=== PATIENT | female | born 1985 | race Caucasian/White ===

== ENCOUNTER 2017-04-19 14:30 | Emergency (ER) | payer BC ==
[~2017-04-19 14:30] MED LIST: SYNT88TA; Z.0.BCPILL
[2017-04-19 14:32] VITALS: BP 129/75; PULSE 86; RESP 18; TEMP 97.7; O2SAT 99
[2017-04-19] MEDS ORDERED: SODIUM CHLORIDE 0.9% FLUSH 10 ML FLUSH IV FLUSH PRN (15:15)
[2017-04-19] MEDS ORDERED: ONDANSETRON ODT 4 MG TAB PO ONE (15:15)
[2017-04-19] MEDS ORDERED: ALUMINUM/MAGNESIUM/SIMETH 30 ML CUP PO ONE (15:30)
[2017-04-19 15:53] VITALS: O2SAT 100
[2017-04-19 15:53] LABS: AUTOMATED NEUTROPHIL # 6.9 TH/MM3 (1.8-7.7); BASOPHIL % 0.2 % (0.0-2.0); EOSINOPHIL % 0.2 % (0.0-4.0); HEMATOCRIT 41.5 % (35.0-46.0); HEMO FLAGS DIFF FINAL; LYMPH % 13.6 % (9.0-44.0); LYMPHOCYTE # 1.2 TH/MM3 (1.0-4.8); MEAN CELL VOLUME 89.8 FL (80.0-100.0); MEAN CORPUSCULAR HEMOGLOBIN 30.6 PG (27.0-34.0); MEAN CORPUSCULAR HGB CONC 34.1 % (32.0-36.0); MONO % 5.8 % (0.0-8.0); NEUT % 80.2 % (16.0-70.0); PLATELET COUNT 234 TH/MM3 (150-450); RED BLOOD COUNT 4.62 MIL/MM3 (4.00-5.30); RED CELL DISTRIBUTION WIDTH 13.8 % (11.6-17.2); WHITE BLOOD COUNT 8.6 TH/MM3 (4.0-11.0)
[2017-04-19 16:09] LABS: ALT (GPT) 27 U/L (10-53); ANION GAP 10 MEQ/L (5-15); AST (GOT) 11 U/L (15-37); BLOOD UREA NITROGEN 5 MG/DL (7-18); CHLORIDE 102 MEQ/L (98-107); GLOMERULAR FILTRATION RATE 125 ML/MIN (>89); POTASSIUM 3.3 MEQ/L (3.5-5.1); SODIUM (NA) 135 MEQ/L (136-145)
[2017-04-19 16:11] LABS: ALKALINE PHOSPHATASE 46 U/L (45-117); TOTAL BILIRUBIN ADULT 0.7 MG/DL (0.2-1.0)
[2017-04-19 16:20] LABS: BACTERIA, URINE RARE /hpf; BLOOD, URINE NEG (NEG); COMMENT (UR) CULT NOT INDICATED; CULTURE IF INDICATED CULT NOT INDICATED; GLUCOSE,URINE NEG (NEG); KETONE, URINE 80 mg/dL (NEG); NITRITE,URINE NEG (NEG); PH, URINE 7.5 (5.0-8.5); SQUAMOUS EPITHELIAL CELL URINE 1 /hpf (0-5); URINE COLOR LIGHT-YELLOW (YELLW/STRAW)
--- NOTE | 2017-04-19 16:26 | RADRPT ---
EXAM DATE/TIME: 04/19/2017 15:37 [facility] COMPARISON: No previous studies available for comparison. INDICATIONS : Right upper quadrant pain. MEDICAL HISTORY : GERD. Hypothyroidism. Ovarian cysts. . SURGICAL HISTORY : None. ENCOUNTER: Initial ACUITY: 1 day PAIN SCORE: 4/10 LOCATION: Right upper quadrant MEASUREMENTS: LIVER: 12.9 cm length COMMON DUCT: 3 mm RIGHT KIDNEY: 11.5 x 4.2 x 6.1 cm FINDINGS: LIVER: Normal echotexture without focal lesion or ductal dilatation. COMMON DUCT: No intraluminal mass or stone visualized. GALLBLADDER: Contains no stones, demonstrates no wall thickening or pericholecystic fluid. PANCREAS: The visualized portions are within normal limits. RIGHT KIDNEY: No evidence of hydronephrosis, stone, or mass. CONCLUSION: Unremarkable ultrasound examination of the gallbladder. 8 Lorenzo Rosado MD on April 19, 2017 at 16:24 Board Certified Radiologist. This report was verified electronically.
--- NOTE | 2017-04-19 16:29 | RADRPT ---
EXAM DATE/TIME: 04/19/2017 15:43 [facility] COMPARISON: No previous studies available for comparison. INDICATIONS : Pelvic pain. LAB(S): Beta-hCG: N/A MEDICAL HISTORY : . Gastroesophageal reflux disease. Ovarian cysts. SURGICAL HISTORY : None. ENCOUNTER: Initial ACUITY: 1 day PAIN SCORE: 6/10 LOCATION: Bilateral pelvis MEASUREMENTS: UTERUS: 8.8 x 6.4 x 7.6 cm ENDOMETRIAL STRIPE: >20 mm RIGHT OVARY: 3.0 x 1.7 x 2.7 cm LEFT OVARY: 7.8 x 6.1 x 9.2 cm FREE FLUID: No CROWN RUMP LENGTH: 2.1 cm = 8 WKS 5 DAYS FHR: 180 BPM FINDINGS: Ultrasound of the pelvis via transabdominal transvaginal approach demonstrates a single viable intrau terine with a crown-rump length of 2.1 cm Cardiac activity is identified at 180 beats per m inute. Normal Doppler flow is present bilaterally. There is an 8.5 cm left ovarian cyst. Examination of the right ovary demonstrates no abnormality. CONCLUSION: 1. Intrauterine at 8 weeks 5 days 2. No evidence of torsion 3. 8.5 cm left adnexal cyst Lorenzo Rosado MD on April 19, 2017 at 16:26 Board Certified Radiologist. This report was verified electronically.
[2017-04-19] MEDS ORDERED: CHLO5CAP4 PO (17:24)
[2017-04-19] MEDS ORDERED: SUCR1TAB PO (17:24)
[2017-04-19] MEDS ORDERED: ZANT150T2 PO (17:24)
--- NOTE | 2017-04-19 17:30 | PD ---
Physical Exam Date Seen by Provider: Apr 19, 2017 Time Seen by Provider: 17:26 Narrative 31-year-old female that presents to the ED for evaluation of pelvic pain. I was asked by my attending to disposition the patient. Please refer to her note. I spoke with Dr. Maradiaga over the phone in regards to the results of the ultrasounds and labs. She recommends starting patient on half a Librium to have every 6 hours as needed for the pelvic cramping as well as standing the patient Carafate 1 gm every day with meals TID. My attending Dr. Donald wants the patient to also start Zantac which is category B. This was discussed with the patient who is in agreement with plan. Dr. Maradiaga stated that she will call the patient tonight and wants to see her in the office tomorrow. This was told to the patient who agrees with plan. Data Data Last Documented VS Vital Signs Date Time Temp Pulse Resp B/P (MAP) Pulse Ox O2 Delivery O2 Flow Rate FiO2 04/19/17 15:53 100 Room Air 04/19/17 15:04 18 04/19/17 14:32 97.7 86 Orders Orders Complete Blood Count With Diff (04/19/17 15:15) Comprehensive Metabolic Panel (04/19/17 15:15) Lipase (04/19/17 15:15) Urinalysis - C+S If Indicated (04/19/17 15:15) Us Abdomen Gallbladder (04/19/17 ) Iv Access Insert/Monitor (04/19/17 15:15) Ecg Monitoring (04/19/17 15:15) Oximetry (04/19/17 15:15) Sodium Chloride 0.9% Flush (Ns Flush) (04/19/17 15:15) Ondansetron Odt (Zofran Odt) (04/19/17 15:15) Al-Mag Hy-Si 40-40-4 Mg/Ml Liq (Mag-Al P (04/19/17 15:30) Us Pelvis Preg(Sgl/ Gestat) (04/19/17 ) Labs Laboratory Tests Test 04/19/17 15:30 White Blood Count 8.6 TH/MM3 Red Blood Count 4.62 MIL/MM3 Hemoglobin 14.2 GM/DL Hematocrit 41.5 % Mean Corpuscular Volume 89.8 FL Mean Corpuscular Hemoglobin 30.6 PG Mean Corpuscular Hemoglobin Concent 34.1 % Red Cell Distribution Width 13.8 % Platelet Count 234 TH/MM3 Mean Platelet Volume 8.9 FL Neutrophils (%) (Auto) 80.2 % Lymphocytes (%) (Auto) 13.6 % Monocytes (%) (Auto) 5.8 % Eosinophils (%) (Auto) 0.2 % Basophils (%) (Auto) 0.2 % Neutrophils # (Auto) 6.9 TH/MM3 Lymphocytes # (Auto) 1.2 TH/MM3 Monocytes # (Auto) 0.5 TH/MM3 Eosinophils # (Auto) 0.0 TH/MM3 Basophils # (Auto) 0.0 TH/MM3 CBC Comment DIFF FINAL Differential Comment Urine Color LIGHT-YELLOW Urine Turbidity CLEAR Urine pH 7.5 Urine Specific [place] 1.006 Urine Protein NEG mg/dL Urine Glucose (UA) NEG mg/dL Urine Ketones 80 mg/dL Urine Occult Blood NEG Urine Nitrite NEG Urine Bilirubin NEG Urine Urobilinogen LESS THAN 2.0 MG/DL Urine Leukocyte Esterase NEG Urine RBC LESS THAN 1 /hpf Urine WBC 1 /hpf Urine Squamous Epithelial Cells 1 /hpf Urine Bacteria RARE /hpf Microscopic Urinalysis Comment CULT NOT INDICATED Blood Urea Nitrogen 5 MG/DL Creatinine 0.57 MG/DL Random Glucose 83 MG/DL Total Protein 7.4 GM/DL Albumin 3.8 GM/DL Calcium Level 9.3 MG/DL Alkaline Phosphatase 46 U/L Aspartate Amino Transf (AST/SGOT) 11 U/L Alanine Aminotransferase (ALT/SGPT) 27 U/L Total Bilirubin 0.7 MG/DL Sodium Level 135 MEQ/L Potassium Level 3.3 MEQ/L Chloride Level 102 MEQ/L Carbon Dioxide Level 23.0 MEQ/L Anion Gap 10 MEQ/L Estimat Glomerular Filtration Rate 125 ML/MIN Lipase 165 U/L [facility] Medical Record Reviewed: Yes Supervised Visit with EDWARDO: No Interpretation(s) CBC & BMP Diagram 04/19/17 15:30 Total Protein 7.4, Albumin 3.8, Calcium Level 9.3, Alkaline Phosphatase 46, Aspartate Amino Transf (AST/SGOT) 11 L, Alanine Aminotransferase (ALT/SGPT) 27, Total Bilirubin 0.7 UA negative Ultrasound the pelvis show a left ovarian cyst about 8 cm. IUP noted as well. Ultrasound of the gallbladder did not show any sign of gallbladder disease. Differential Diagnosis Gallbladder disease versus ovarian cyst versus pelvic pain versus IUP versus GERD versus gastritis Narrative Course 31-year-old female that presents to the ED for evaluation of pelvic pain. I was asked by my attending to disposition the patient. Please refer to her note. I spoke with Dr. Maradiaga over the phone in regards to the results of the ultrasounds and labs. She recommends starting patient on half a Librium to have every 6 hours as needed for the pelvic cramping as well as standing the patient Carafate 1 gm every day with meals TID. My attending Dr. Donald wants the patient to also start Zantac which is category B. This was discussed with the patient who is in agreement with plan. Dr. Maradiaga stated that she will call the patient tonight and wants to see her in the office tomorrow. This was told to the patient who agrees with plan. She understands reasons to come back to the ED. See ED for worsening symptoms. Diagnosis Primary Impression: Ovarian cyst Qualified Codes: N83.202 - Unspecified ovarian cyst, left side Additional Impressions: Pelvic pain affecting Qualified Codes: O26.891 - Other specified related conditions, first trimester; R10.2 - Pelvic and perineal pain Gastritis Qualified Codes: K29.00 - Acute gastritis without bleeding Patient Instructions: General Instructions Additional Instruction: Take medications as prescribed. Dr. Mayo will call you tonight and wants to see you in her office tomorrow morning. See ED for any worsening symptoms. Follow with PCP. Med/Other Pt SpecificInfo: Prescription(s) given Scripts Sucralfate (Sucralfate) 1 Gram Tab 1 GM PO TID for Duodenal ulcer, #20 TAB 0 Refills on empty stomach Prov: Neetu Donald MD 04/19/17 Chlordiazepoxide HCl (Chlordiazepoxide HCl) 5 Mg Capsule 0.5 MG PO Q6HR Y for PAIN SCALE 1 TO 10, #10 Prov: Neetu Donald MD 04/19/17 Ranitidine (Zantac) 150 Mg Tab 150 MG PO BID for Reduce Stomach Acid, #20 TAB 0 Refills Prov: Neetu Donald MD 04/19/17 Disposition: 01 DISCHARGE HOME Condition: Bassam Doyle Apr 19, 2017 17:30
--- NOTE | 2017-04-19 18:37 | PD ---
HPI Chief Complaint: Chief Specialist Le[place] Problem/Complaint Time Seen by Provider: 15:02 Travel History International Travel<30 days: No Contact w/Intl Traveler<30days: No Traveled to known affect area: No History of Present Illness HPI A 31-year-old female who is 10 weeks who presents to the emergency department with 2 months of right upper quadrant abdominal pain and epigastric pain, intermittent, pressure-like with burning up her chest, associated with intermittent vomiting with no fevers or chills. She has had some right upper quadrant pain since before she knew she was and she had a HIDA scan because they were concerned about her gallbladder which was reassuring. She's been taking sucralfate which is not helping. She feels like her pain is gotten much worse over the past week and she's having difficulty keeping food down. She also incidentally has an 8 cm ovarian cyst but her pain is on the upper abdomen. PFSH Past Medical History Diminished Hearing: No GERD: Yes Thyroid Disease: Yes Tetanus Vaccination: > 5 Years Influenza Vaccination: No ?: : 1 Para: 0 Ovarian Cysts: Yes Past Surgical History Other Surgery: Yes (breast augmentation ) Social History Alcohol Use: No Tobacco Use: No Substance Use: No Allergies-Medications (Allergen,Severity, Reaction): Coded Allergies: No Known Allergies (Verified Allergy, Mild, 03/23/06) Reported Meds & Prescriptions Reported Meds & Active Scripts Active Sucralfate 1 Gram Tab 1 Gm PO TID on empty stomach Chlordiazepoxide HCl 5 Mg Capsule 0.5 Mg PO Q6HR PRN Zantac (Ranitidine HCl) 150 Mg Tab 150 Mg PO BID Reported Control Pills (Miscellaneous Medication) Tab Synthroid (Levothyroxine Sodium) 88 Mcg Tab Review of Systems Except as stated in HPI: all other systems reviewed are Neg Physical Exam Narrative GENERAL:Well appearing, no acute distress SKIN: Focused skin assessment warm and dry. HEAD: Atraumatic. Normocephalic. EYES: Pupils equal and round. No injection or drainage. ENT: Moist mucous membranes NECK: Trachea midline. CARDIOVASCULAR: Regular rate and rhythm. No murmur appreciated. RESPIRATORY: Clear to auscultation. Breath sounds equal bilaterally. GASTROINTESTINAL: Abdomen soft, tender to palpation in the right upper quadrant and epigastrium with no rebound or guarding. MUSCULOSKELETAL: No obvious deformities. NEUROLOGICAL: Awake and alert. No obvious cranial nerve deficits. Moving all extremities. PSYCHIATRIC: Appropriate mood and affect; insight and judgment normal. Data Data Last Documented VS Vital Signs Date Time Temp Pulse Resp B/P (MAP) Pulse Ox O2 Delivery O2 Flow Rate FiO2 04/19/17 18:10 04/19/17 15:53 100 Room Air 04/19/17 15:04 18 04/19/17 14:32 97.7 86 Orders Orders Complete Blood Count With Diff (04/19/17 15:15) Comprehensive Metabolic Panel (04/19/17 15:15) Lipase (04/19/17 15:15) Urinalysis - C+S If Indicated (04/19/17 15:15) Us Abdomen Gallbladder (04/19/17 ) Iv Access Insert/Monitor (04/19/17 15:15) Ecg Monitoring (04/19/17 15:15) Oximetry (04/19/17 15:15) Sodium Chloride 0.9% Flush (Ns Flush) (04/19/17 15:15) Ondansetron Odt (Zofran Odt) (04/19/17 15:15) Al-Mag Hy-Si 40-40-4 Mg/Ml Liq (Mag-Al P (04/19/17 15:30) Us Pelvis Preg(/ Gestat) (04/19/17 ) Ed Discharge Order (04/19/17 17:42) Labs Laboratory Tests Test 04/19/17 15:30 White Blood Count 8.6 TH/MM3 Red Blood Count 4.62 MIL/MM3 Hemoglobin 14.2 GM/DL Hematocrit 41.5 % Mean Corpuscular Volume 89.8 FL Mean Corpuscular Hemoglobin 30.6 PG Mean Corpuscular Hemoglobin Concent 34.1 % Red Cell Distribution Width 13.8 % Platelet Count 234 TH/MM3 Mean Platelet Volume 8.9 FL Neutrophils (%) (Auto) 80.2 % Lymphocytes (%) (Auto) 13.6 % Monocytes (%) (Auto) 5.8 % Eosinophils (%) (Auto) 0.2 % Basophils (%) (Auto) 0.2 % Neutrophils # (Auto) 6.9 TH/MM3 Lymphocytes # (Auto) 1.2 TH/MM3 Monocytes # (Auto) 0.5 TH/MM3 Eosinophils # (Auto) 0.0 TH/MM3 Basophils # (Auto) 0.0 TH/MM3 CBC Comment DIFF FINAL Differential Comment Urine Color LIGHT-YELLOW Urine Turbidity CLEAR Urine pH 7.5 Urine Specific [place] 1.006 Urine Protein NEG mg/dL Urine Glucose (UA) NEG mg/dL Urine Ketones 80 mg/dL Urine Occult Blood NEG Urine Nitrite NEG Urine Bilirubin NEG Urine Urobilinogen LESS THAN 2.0 MG/DL Urine Leukocyte Esterase NEG Urine RBC LESS THAN 1 /hpf Urine WBC 1 /hpf Urine Squamous Epithelial Cells 1 /hpf Urine Bacteria RARE /hpf Microscopic Urinalysis Comment CULT NOT INDICATED Blood Urea Nitrogen 5 MG/DL Creatinine 0.57 MG/DL Random Glucose 83 MG/DL Total Protein 7.4 GM/DL Albumin 3.8 GM/DL Calcium Level 9.3 MG/DL Alkaline Phosphatase 46 U/L Aspartate Amino Transf (AST/SGOT) 11 U/L Alanine Aminotransferase (ALT/SGPT) 27 U/L Total Bilirubin 0.7 MG/DL Sodium Level 135 MEQ/L Potassium Level 3.3 MEQ/L Chloride Level 102 MEQ/L Carbon Dioxide Level 23.0 MEQ/L Anion Gap 10 MEQ/L Estimat Glomerular Filtration Rate 125 ML/MIN Lipase 165 U/L [facility] Medical Decision Making Medical Screen Exam Complete: Yes Emergency Medical Condition: Yes Interpretation(s) Afebrile, no tachycardia, normotensive No leukocytosis Electrolytes are all reassuring Urinalysis is negative for infection, some ketones Pelvic ultrasound: Intrauterine at 8 weeks 5 days, no evidence of torsion, a 0.5 cm left adnexal cyst Gallbladder ultrasound: Normal Differential Diagnosis Gastritis, peptic ulcer disease, ovarian torsion, cholelithiasis, cholecystitis Narrative Course This is a 31-year-old female who is 8 weeks who presents to the emergency department with upper abdominal pain, nausea and intermittent vomiting. The pain is been going on for 2 months but has gotten worse and she is known she's . She had a normal HIDA scan. Labs are obtained which were all reassuring. Pelvic and gallbladder ultrasound are both reassuring. I suspect based on the patient's symptoms that she has gastritis and esophageal reflux. I think she should be on an antacid. She has an appointment to follow- up with Dr. Maradiaga tomorrow. I think she is safe for discharge. Diagnosis Primary Impression: Ovarian cyst Qualified Codes: N83.202 - Unspecified ovarian cyst, left side Additional Impressions: Gastritis Qualified Codes: K29.00 - Acute gastritis without bleeding Pelvic pain affecting Qualified Codes: O26.891 - Other specified related conditions, first trimester; R10.2 - Pelvic and perineal pain Referrals: Sarah Mayo MD (PCP) call for appointment Patient Instructions: General Instructions, Chlordiazepoxide (By mouth), Ranitidine (By mouth), Sucralfate (By mouth), Ovarian Cyst (ED) Departure Forms: Tests/Procedures Additional Instructions: Take medications as prescribed. Dr. Mayo will call you tonight and wants to see you in her office tomorrow morning. See ED for any worsening symptoms. Follow with PCP. Scripts Sucralfate (Sucralfate) 1 Gram Tab 1 GM PO TID for Duodenal ulcer, #20 TAB 0 Refills on empty stomach Prov: Neetu Donald MD 04/19/17 Chlordiazepoxide HCl (Chlordiazepoxide HCl) 5 Mg Capsule 0.5 MG PO Q6HR Y for PAIN SCALE 1 TO 10, #10 Prov: Neetu Donald MD 04/19/17 Ranitidine (Zantac) 150 Mg Tab 150 MG PO BID for Reduce Stomach Acid, #20 TAB 0 Refills Prov: Neetu Donald MD 04/19/17 Disposition: 01 DISCHARGE HOME Condition: Stable Neetu Donald MD Apr 19, 2017 18:37
== END 2017-04-19 18:10 | disposition home or self-care (01) ==
LOC: NEPC 14:30
DX: O34.81 Maternal care for other abnormalities of pelvic organs, first trimester (principal); N83.202 Unspecified ovarian cyst, left side; O26.891 Other specified pregnancy related conditions, first trimester; R10.2 Pelvic and perineal pain; K29.00 Acute gastritis without bleeding; O99.281 Endocrine, nutritional and metabolic diseases complicating pregnancy, first trimester; E07.9 Disorder of thyroid, unspecified; Z3A.08 8 weeks gestation of pregnancy
CPT/HCPCS: 76705; 76801; 80053; 81001; 83690; 85025; 99285